=== PATIENT | male | born 1985 | race Caucasian/White ===

== ENCOUNTER 2018-04-17 15:56 | Emergency (ER) | payer MEDICAID ==
[~2018-04-17] VITALS: Ht 185.4 cm; Wt 84.0 kg
[~2018-04-17 15:56] MED LIST: AMPH30TA3 PO; HYDR-569 PO; IBUP-1984 PO; LITH150C8 PO; LORA1TAB PO; ZOL50T PO
[2018-04-17 16:58] VITALS: BP 115/69
== END 2018-04-17 18:01 | disposition home or self-care (01) ==
LOC: ER 15:59
DX: F41.9 Anxiety disorder, unspecified (principal); F32.9 Major depressive disorder, single episode, unspecified; G89.29 Other chronic pain; Z76.0 Encounter for issue of repeat prescription; Z59.0 Homelessness; Z56.0 Unemployment, unspecified
CPT/HCPCS: 99281

== ENCOUNTER 2018-05-08 10:08 | Emergency (ER) | payer MEDICAID ==
[~2018-05-08] VITALS: Ht 185.4 cm; Wt 93.7 kg
[~2018-05-08 10:08] MED LIST changes: +HYDR-4383 PO; -HYDR-569 PO; -IBUP-1984 PO; -LORA1TAB PO
[2018-05-08 10:13] VITALS: BP 128/71
== END 2018-05-08 10:43 | disposition home or self-care (01) ==
LOC: ER 10:09
DX: G89.29 Other chronic pain (principal); M54.5 Low back pain; Z79.899 Other long term (current) drug therapy; Z56.0 Unemployment, unspecified; Z59.0 Homelessness; Z60.2 Problems related to living alone
CPT/HCPCS: 99281

== ENCOUNTER 2018-09-10 15:28 | Emergency (ER) | payer MEDICAID ==
[~2018-09-10] VITALS: Ht 185.4 cm; Wt 90.0 kg
[2018-09-10 15:48] VITALS: BP 141/71
[2018-09-10] MEDS ORDERED: LORazepam 1 MG tablet PO ONE (16:50)
--- NOTE | 2018-09-10 17:08 | NUR ---
PT FOUND IN RAP WAITING ROOM WITH EYES CLOSED AND SNORING RESP. SPOKE WITH VILMA WILL HOLD ATIVAN AND DC
--- NOTE | 2018-09-10 17:13 | NUR ---
IN TO DC PT, PT APEARS TO BE ASLEEP. HAD TO SAY PTS NAME LOUDLY FOR HIM TO OPEN HIS EYES. REVIEWED DC INSTRUCTIONS WITH PT, PT STATES "ARE YOU GOING TO TREAT ME HERE" INFORMED PT WE WILL NOT BE ABLE TO GIVE ATIVAN PT WAS SLEEPING AND NEEDED TO BE WOKEN UP PRIOR TO DC. PT STATES "IM NOT SIGNING THAT UNTIL I GET ATIVAN" PT INFORMED HE NEEDS TO LEAVE AND HAS BEEN DCD BY [facility] EMT. PT AGRESSIVLY STANDS UP AND STATES "YOU ALL NEED TO GO TO FUCKING HELL." PT ESCORTED TO LOBBY BY [facility] AND PT LEFT THE ER. VILMA DIXON NOTIFIED OF PTS BEHAVIOR
== END 2018-09-10 17:29 | disposition home or self-care (01) ==
LOC: ER 15:29
DX: F41.9 Anxiety disorder, unspecified (principal); Z76.0 Encounter for issue of repeat prescription; F32.9 Major depressive disorder, single episode, unspecified; G89.29 Other chronic pain; F17.200 Nicotine dependence, unspecified, uncomplicated; F12.90 Cannabis use, unspecified, uncomplicated; Z79.899 Other long term (current) drug therapy; Z56.0 Unemployment, unspecified; Z59.0 Homelessness; Z60.2 Problems related to living alone
CPT/HCPCS: 99281

== ENCOUNTER 2019-03-28 20:41 | Emergency (ER) | payer MEDICAID ==
[~2019-03-28] VITALS: Ht 185.4 cm; Wt 86.4 kg
[~2019-03-28 20:41] MED LIST changes: +SERT-153 PO; -ZOL50T PO
[2019-03-28 20:45] VITALS: BP 134/86
== END 2019-03-28 21:49 | disposition home or self-care (01) ==
LOC: ER 20:42
DX: L98.8 Other specified disorders of the skin and subcutaneous tissue (principal); K13.79 Other lesions of oral mucosa; G89.29 Other chronic pain; F41.9 Anxiety disorder, unspecified; F32.9 Major depressive disorder, single episode, unspecified; F12.90 Cannabis use, unspecified, uncomplicated; Z71.1 Person with feared health complaint in whom no diagnosis is made; Z59.0 Homelessness; Z56.0 Unemployment, unspecified; Z79.899 Other long term (current) drug therapy
CPT/HCPCS: 99281

== ENCOUNTER 2019-04-07 13:50 | Inpatient (IN) | payer MEDICAID ==
[~2019-04-07] VITALS: Ht 185.4 cm; Wt 185.0 kg
[2019-04-07] MEDS ORDERED: hydrOXYzine 25 MG tablet PO PRN (15:20)
[2019-04-07] MEDS ORDERED: magnesium hydroxide 30ml (MOM) UD suspension PO PRN (15:20)
[2019-04-07] MEDS ORDERED: NICOTINE POLACRILEX 2 MG LOZENGE MM PRN (15:20)
[2019-04-07] MEDS ORDERED: loperamide 2mg capsule PO PRN (15:20)
[2019-04-07] MEDS ORDERED: acetaminophen 325mg tablet PO PRN ×2 (15:20)
[2019-04-07] MEDS ORDERED: LORazepam 1 MG tablet PO PRN (15:20)
[2019-04-07] MEDS ORDERED: mag hydrox/Alum hydrox/simeth 30ml oral suspension PO PRN (15:20)
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
[2019-04-07] MEDS ORDERED: LORA2TAB PO (17:15)
[2019-04-07] MEDS ORDERED: OXYC10TA47 (17:15)
[2019-04-07] MEDS ORDERED: AMPH15TA2 PO (17:15)
[2019-04-07] MEDS ORDERED: ESCI20TA38 PO (17:15)
[2019-04-07 20:40] VITALS: BP 109/53
[2019-04-07] MEDS: LORazepam 1 MG tablet PO SCH (20:48)
[2019-04-07] MEDS: oxyCODONE IR 5mg (immed. release) tablet PO SCH (20:50)
[2019-04-07] MEDS: quetiapine 100mg tablet PO SCH (20:50)
--- NOTE | 2019-04-07 23:05 | NUR ---
FATHERS PHONE NUMBER# , lives in [place].
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
[2019-04-08 07:46] VITALS: BP 103/67
[2019-04-08 08:04] LABS: CHOL/HDL RATIO 2.9 (0.00-4.99); CHOLESTEROL 116 MG/DL (0-200); HDL CHOLESTEROL 40 MG/DL (35-60); LDL CHOLESTEROL 67 MG/DL (50-100); TRIGLYCERIDES 88 MG/DL (20-135)
[2019-04-08 08:15] LABS: HEMOGLOBIN A1C 5.1 % (4.5-6.2)
[2019-04-08] MEDS: nicotine 21mg patch - 24 hr TD SCH (08:19)
[2019-04-08] MEDS: oxyCODONE IR 5mg (immed. release) tablet PO SCH ×3 (08:20→20:18)
[2019-04-08] MEDS: LORazepam 1 MG tablet PO SCH ×4 (08:20→20:17)
[2019-04-08] MEDS: citalopram 20mg tablet PO SCH (08:21)
[2019-04-08] MEDS: ADDERALL 30MG TAB PO SCH ×2 (08:49→15:13)
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
[2019-04-08 20:00] VITALS: BP 131/65
[2019-04-08] MEDS: quetiapine 100mg tablet PO SCH (20:17)
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
[2019-04-09 07:30] VITALS: BP 101/59
[2019-04-09] MEDS: citalopram 20mg tablet PO SCH (08:00)
[2019-04-09] MEDS: nicotine 21mg patch - 24 hr TD SCH (08:00)
[2019-04-09] MEDS: oxyCODONE IR 5mg (immed. release) tablet PO SCH ×3 (08:01→20:29)
[2019-04-09] MEDS: LORazepam 1 MG tablet PO SCH ×4 (08:02→20:28)
[2019-04-09] MEDS: ADDERALL 30MG TAB PO SCH ×2 (08:46→14:40)
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
[2019-04-09 20:00] VITALS: BP 124/87
[2019-04-09] MEDS: quetiapine 100mg tablet PO SCH (20:29)
[2019-04-09] MEDS: QUEtiapine 25mg tablet PO SCH (20:29)
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
[2019-04-10 07:30] VITALS: BP 95/57
[2019-04-10] MEDS: QUEtiapine 25mg tablet PO SCH ×3 (07:44→20:47)
[2019-04-10] MEDS: LORazepam 1 MG tablet PO SCH ×4 (07:44→20:47)
[2019-04-10] MEDS: citalopram 20mg tablet PO SCH (07:45)
[2019-04-10] MEDS: oxyCODONE IR 5mg (immed. release) tablet PO SCH ×2 (07:46→12:27)
[2019-04-10] MEDS: nicotine 21mg patch - 24 hr TD SCH (07:47)
[2019-04-10] MEDS ORDERED: bisacodyl 10mg suppository rectal RC PRN (16:40)
[2019-04-10] MEDS ORDERED: magnesium hydroxide 30ml (MOM) UD suspension PO PRN (16:40)
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
[2019-04-10] MEDS ORDERED: docusate sod 100mg capsule PO SCH (20:00)
[2019-04-10 20:02] VITALS: BP 130/77
[2019-04-10] MEDS: quetiapine 100mg tablet PO SCH (20:47)
[2019-04-10] MEDS: docusate sod 100mg capsule PO SCH (20:47)
[2019-04-10] MEDS: OXYcodone (OXYCONTIN) Ext Release 15 MG TAB.SR.12H PO SCH (20:48)
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
[2019-04-11] MEDS: LORazepam 1 MG tablet PO SCH ×4 (07:41→21:00)
[2019-04-11] MEDS: citalopram 20mg tablet PO SCH (07:41)
[2019-04-11] MEDS: nicotine 21mg patch - 24 hr TD SCH (07:41)
[2019-04-11] MEDS: OXYcodone (OXYCONTIN) Ext Release 15 MG TAB.SR.12H PO SCH ×2 (07:42→20:00)
[2019-04-11] MEDS: QUEtiapine 25mg tablet PO SCH ×2 (07:42→12:49)
[2019-04-11] MEDS: docusate sod 100mg capsule PO SCH ×2 (07:42→20:00)
[2019-04-11 08:00] VITALS: BP 95/62
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
[2019-04-11 19:50] VITALS: BP 114/71
[2019-04-11] MEDS: quetiapine 100mg tablet PO SCH (21:00)
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
[2019-04-12] MEDS: citalopram 20mg tablet PO SCH (07:33)
[2019-04-12] MEDS: QUEtiapine 25mg tablet PO SCH ×2 (07:33→14:58)
[2019-04-12] MEDS: LORazepam 1 MG tablet PO SCH ×2 (07:33→14:58)
[2019-04-12] MEDS: docusate sod 100mg capsule PO SCH (07:33)
[2019-04-12] MEDS: nicotine 21mg patch - 24 hr TD SCH (07:34)
[2019-04-12] MEDS: OXYcodone (OXYCONTIN) Ext Release 15 MG TAB.SR.12H PO SCH (07:34)
[2019-04-12 08:09] VITALS: BP 122/72
--- NOTE | 2019-04-12 11:01 | NUR ---
Eating well, 75-100% PO Intake regular diet. Meeting nutrition needs. Recommend: 1. continue regular diet 2. weekly wts Addendum: 04/12/19 at [address] Amended: Links added.
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
[2019-04-12] MEDS ORDERED: QUET25TA34 PO (16:47)
[2019-04-12] MEDS ORDERED: NICO-668 MM (16:47)
[2019-04-12] MEDS ORDERED: CITA-124 PO (16:47)
[2019-04-12] MEDS ORDERED: NICO-687 TD (16:47)
[2019-04-12] MEDS ORDERED: ATI1T PO ×3 (16:47)
[2019-04-12] MEDS ORDERED: LORazepam 1 MG tablet PO SCH (17:00)
--- NOTE | 2019-04-12 18:34 | NUR ---
Pt left unit accompanied by staff to hospital lobby. Mom waiting in parking lot to pickle pumper pt. Pt verbalized understanding of Discharge orders. Ativan prescription given to pt all other prescriptions called into [facility] per pt request.
== END 2019-04-12 18:34 | disposition home or self-care (01) | DRG 751 ==
LOC: ADULT MH 13:50
PROVIDERS: ADMIT Psychiatry & Neurology Psychiatry; ATTEND Psychiatry & Neurology Psychiatry
DX: F29 Unspecified psychosis not due to a substance or known physiological condition (principal); F22 Delusional disorders; F12.90 Cannabis use, unspecified, uncomplicated; F90.9 Attention-deficit hyperactivity disorder, unspecified type; G89.29 Other chronic pain; I10 Essential (primary) hypertension; K59.00 Constipation, unspecified; F17.210 Nicotine dependence, cigarettes, uncomplicated; F32.9 Major depressive disorder, single episode, unspecified; F41.9 Anxiety disorder, unspecified; M54.30 Sciatica, unspecified side; M54.2 Cervicalgia; M54.9 Dorsalgia, unspecified; Z79.899 Other long term (current) drug therapy
CPT/HCPCS: 36415; 80061; 83036; 87081; 99285

== ENCOUNTER 2019-07-20 18:30 | Emergency (ER) | payer MEDICAID ==
[~2019-07-20] VITALS: Ht 185.4 cm; Wt 97.7 kg
[~2019-07-20 18:30] MED LIST changes: -AMPH30TA3 PO; +ATI1T PO; +CITA-124 PO; -HYDR-4383 PO; -LITH150C8 PO; +NICO-668 MM; +NICO-687 TD; +OXYC10TA47; +QUET25TA34 PO; -SERT-153 PO
[2019-07-20 19:11] VITALS: BP 123/93
[2019-07-20] MEDS ORDERED: oxyCODONE/APAP 10/325mg tablet PO ONE (19:20)
--- NOTE | 2019-07-20 19:44 | NUR ---
Nurse brought pt his pain meds. Pt stated he has his own ride home.
== END 2019-07-20 19:51 | disposition home or self-care (01) ==
LOC: ER 18:31
DX: G89.4 Chronic pain syndrome (principal); K08.89 Other specified disorders of teeth and supporting structures; F12.90 Cannabis use, unspecified, uncomplicated; Z59.0 Homelessness; Z56.0 Unemployment, unspecified; Z79.899 Other long term (current) drug therapy
CPT/HCPCS: 99282

== ENCOUNTER 2019-08-30 15:15 | Emergency (ER) | payer MEDICAID ==
[~2019-08-30] VITALS: Ht 185.4 cm; Wt 97.7 kg
--- NOTE | 2019-08-30 15:45 | NUR ---
Assumed care of the patient at this time.
--- NOTE | 2019-08-30 16:30 | NUR ---
Pt is calm and cooperative, denies pain. Pt is aware we need a urine specimen.
[2019-08-30 16:35] LABS: BASOPHILS % (AUTO) 0.9 % (0-1); EOSINOPHILS # (AUTO) 0.2 X10'3 (0-0.9); EOSINOPHILS % (AUTO) 4.4 % (0-6); HEMATOCRIT 42.8 % (42.0-52.0); HEMOGLOBIN 14.9 g/dl (14.0-17.9); LYMPHOCYTES # (AUTO) 1.5 X10'3 (1.1-4.8); LYMPHOCYTES % (AUTO) 33.1 % (21-51); MEAN CORPUSCULAR HEMOGLOBIN 30.5 PG (27.0-31.0); MEAN CORPUSCULAR HGB CONC 34.8 g/dL (33.0-36.5); MEAN CORPUSCULAR VOLUME 87.5 FL (78-98); MEAN PLATELET VOLUME 9.2 FL (7.4-10.4); MONOCYTES # (AUTO) 0.4 X10'3 (0-0.9); MONOCYTES % (AUTO) 8.5 % (2-12); NEUTROPHILS # (AUTO) 2.5 X10'3 (1.8-7.7); NEUTROPHILS % (AUTO) 53.1 % (42-75); PLATELET COUNT 219 X10'3 (140-440); RED BLOOD COUNT 4.89 X10'6 (4.70-6.10); WHITE BLOOD COUNT 4.6 X10'3 (4.5-11.0)
[2019-08-30 16:47] LABS: ALANINE AMINOTRANSFERASE 30 U/L (12-78); ALBUMIN 3.8 G/DL (3.4-5.0); ALBUMIN/GLOBULIN RATIO 1.5 (1.1-1.5); ALKALINE PHOSPHATASE 118 IU/L (46-116); ANION GAP 5 (8-16); ASPARTATE AMINO TRANSFERASE 12 U/L (10-37); BILIRUBIN,TOTAL 0.3 MG/DL (0.1-1.0); BLOOD UREA NITROGEN 14 MG/DL (7-18); BUN/CREATININE RATIO 14.7 (5.4-32.0); CALCIUM 8.6 MG/DL (8.5-10.1); CHLORIDE 110 MMOL/L (99-107); CREATININE 0.95 MG/DL (0.60-1.10); GLUCOSE 99 MG/DL (70-104); POTASSIUM 3.7 MMOL/L (3.5-5.1); SODIUM 144 MMOL/L (135-145); TOTAL CARBON DIOXIDE 29.2 MMOL/L (24-32); TOTAL PROTEIN 6.3 G/DL (6.4-8.2); eGFR > 90 ML/MIN
[2019-08-30 16:51] LABS: ETHANOL < 0.010 GM/DL (0.0-0.010)
--- NOTE | 2019-08-30 17:30 | NUR ---
No change in condition. Pt is calm and cooperative.
[2019-08-30] MEDS ORDERED: DEXT10CA19 PO (18:12)
[2019-08-30] MEDS ORDERED: ESCI20TA45 PO (18:12)
[2019-08-30] MEDS ORDERED: [UNRECOGNIZED DRUG - CODE] PO (18:16)
[2019-08-30] MEDS ORDERED: NICO-687 TOP (18:16)
--- NOTE | 2019-08-30 18:37 | NUR ---
Pt resting with even and unlabored respirations.
--- NOTE | 2019-08-30 19:35 | NUR ---
Pt resting, no complaints. Pt ate his dinner tray. Sitter at bedside.
[2019-08-30] MEDS ORDERED: BUPR2TAB11 SL (19:55)
--- NOTE | 2019-08-30 20:25 | NUR ---
No change in condition. Continuing to monitor.
--- NOTE | 2019-08-30 20:45 | NUR ---
Pt ambulatory with steady gait to the restroom to provide a urine specimen. Pt remains calm and cooperative with no complaints at this time.
[2019-08-30 21:10] LABS: CLARITY,URINE SLIGHTLY CLOUDY (Clear); COLOR,URINE YELLOW (Yellow); GLUCOSE, URINE NEGATIVE (Neg); KETONES,URINE NEGATIVE (Neg); LEUKOCYTE ESTERASE ,URINE NEGATIVE (Neg); NITRITES, URINE NEGATIVE (Neg); OCCULT BLOOD,URINE NEGATIVE (Neg); PH,URINE 6.5 (4.8-8.0); PROTEIN,URINE NEGATIVE (Neg); UROBILINOGEN,URINE 0.2 E.U/dL (0.2-1.0)
[2019-08-30 21:16] LABS: UA COLLECTION TYPE CLN CATCH MIDSTREAM
[2019-08-30 21:19] LABS: BACTERIA,URINE NONE SEEN /HPF (Neg); MUCUS STRANDS MANY /LPF (Neg); RBC,URINE NONE SEEN /HPF (0-2); SQUAMOUS EPITHELIAL CELL,UR FEW /LPF (FEW); WBC,URINE 0-4 /HPF (0-4)
[2019-08-30 21:20] LABS: CAL OXALATE CRYSTALS FEW /HPF (NEGATIVE); SPERM FEW /HPF (NEGATIVE)
--- NOTE | 2019-08-30 21:20 | NUR ---
Pt moved from ED bed 15 to ED bed 27 in the overflow area for further monitoring while awaiting mental health evaluation from [facility] staff.
[2019-08-30 21:24] LABS: URINE AMPHETAMINE SCREEN NEGATIVE (Neg); URINE BARBITUATE SCREEN NEGATIVE (Neg); URINE BENZODIAZEPINES SCREEN NEGATIVE (Neg); URINE CANNABINOID SCREEN POSITIVE (Neg); URINE COCAINE SCREEN NEGATIVE (Neg); URINE METHADONE SCREEN NEGATIVE (Neg); URINE OPIATE SCREEN NEGATIVE (Neg); URINE PHENCYCLIDINE SCREEN NEGATIVE (Neg)
--- NOTE | 2019-08-30 21:27 | NUR ---
Pt arrived in overflow from main ER, calm cooperative ambulated to his bed and is now asleep on his stomach rr even and unlabored.
[2019-08-30] MEDS ORDERED: NICOTINE POLACRILEX 2 MG LOZENGE BC PRN (22:20)
--- NOTE | 2019-08-30 22:29 | NUR ---
pt laying in bed asleep rr even and unlabored no s/s distress
--- NOTE | 2019-08-31 01:00 | NUR ---
pt laying in bed on his right side rr 14 even and unlabored no s/s distress
--- NOTE | 2019-08-31 02:41 | NUR ---
pt is sleeping rr even and unlabored
--- NOTE | 2019-08-31 05:00 | NUR ---
pt laying on his left side sleeping rr even and unlabored no s/s distress
[2019-08-31] MEDS: BUPRENORPHINE HCL 8 MG SL SCH ×2 (08:00→20:00)
--- NOTE | 2019-08-31 09:30 | NUR ---
PTS FATHER HAD COME TO VISIT, PT REFUSES TO HAVE FATHER COME SEE HIM. PARENT LEFT PHONE HIS AND WIFES NUMBER FOR CONTACT PETER REDMOND: SHAWNA REDMOND:
[2019-08-31] MEDS: ESCITALOPRAM OXALATE 5 MG TABLET PO SCH (10:15)
[2019-08-31] MEDS: nicotine 21mg patch - 24 hr TD SCH (10:15)
--- NOTE | 2019-08-31 11:03 | NUR ---
[facility] speaking to patient and advising patient of 5150 hold.
--- NOTE | 2019-08-31 11:05 | NUR ---
CEZAR FROM [facility] AT BEDSIDE TO SPEAK WITH PATIENT AT THIS TIME.
[2019-08-31] MEDS ORDERED: haloperidol lactate 5mg/ml inj IM ONE (11:15)
[2019-08-31] MEDS ORDERED: diphenhydrAMINE 50 mg/ml inj IM ONE (11:15)
[2019-08-31] MEDS ORDERED: LORazepam 2 mg/ml vial IM ONE (11:15)
--- NOTE | 2019-08-31 11:28 | NUR ---
PATIENT IS CURRENTLY IN THE BATHROOM. I KNOCKED ON THE DOOR AND CHECKED IN ON THE PATIENT TO MAKE SURE HE WAS SAFELY USING THE RESTROOM.
--- NOTE | 2019-08-31 12:22 | NUR ---
PT LAYING ON RIGHT SIDE RESTING WITH EYES CLOSED, EFFORTLESS RESPRIATIONS OBSERVED.
--- NOTE | 2019-08-31 19:00 | NUR ---
PT IN BED RESTLESS/ MOVING AROUND ALOT/ STATED ' FEELING ANITIOUS AND OUT OF CONTROL IN MY MIND " ASKING IF HE CAN NOW TAKE HIS MEDICATION THAT HE WILL BE COROPERATE , BUT I DONT GET SOMETHING I CAN GET OUT OF CONTROL" DAYSHIFT CARLOS ROSADO REPORTED PT HAD BEEN REFUSING ALL DAY . PT VERBALIZED HE WILL SIT STILL AND NOW TAKE HIS MEDICINE
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
--- NOTE | 2019-08-31 23:05 | NUR ---
PT SLEEPING PEACFULLY RESP UNLABORED SELF POSITIONS WILL CONTINUE TO ASSESS AND MONITOR
--- NOTE | 2019-09-01 00:29 | NUR ---
NO CHANGES TO PREVIOUS ASSESSMENT RESP UNLABORED PT SLEEPING PEACFULLY IN THE LINE OF SIGHT OF STAFF
--- NOTE | 2019-09-01 01:00 | NUR ---
PT SLEEPING ON HIS BACK RESP UNLABORED NO CHANGES TO PREVIOUS ASSESSMENT WILL CONTINUE TO ASSESS AND MONITOR
--- NOTE | 2019-09-01 02:00 | NUR ---
PT SLEEPING PEACFULLY ON HIS STOMACH NO CHANGE TO PREVIOUS ASSEEMENT RESP UNLABORED WILL CONTINUE TO MONITOR AND REASSESS
--- NOTE | 2019-09-01 03:24 | NUR ---
PT SLEEPING PEACFULLY ON HIS RIGHT SIDE NO CHANGE TO PREVIOUS ASSEEMENT RESP UNLABORED WILL CONTINUE TO MONITOR AND REASSESS
--- NOTE | 2019-09-01 04:43 | NUR ---
PT SLEEPING PEACFULLY ON HIS RIGHT SIDE NO CHANGE TO PREVIOUS ASSESSMENT RESP UNLABORED WILL CONTINUE TO MONITOR AND REASSESS
--- NOTE | 2019-09-01 05:38 | NUR ---
PT ASLEEP ON HIS RIGHT SIDE RESP UNLABORED WILL CONTINUE TO MONITOR AND REASSESS
[2019-09-01 06:15] VITALS: BP 124/9
[2019-09-01] MEDS: BUPRENORPHINE HCL 8 MG SL SCH (08:00)
[2019-09-01] MEDS: nicotine 21mg patch - 24 hr TD SCH (08:17)
[2019-09-01] MEDS: ESCITALOPRAM OXALATE 5 MG TABLET PO SCH (08:17)
--- NOTE | 2019-09-01 09:10 | NUR ---
Patient has finished breakfast and has taken his available AM medications. He is calmly laying in bed, attempting to sleep further. So far he has not shown agitation at being here.
--- NOTE | 2019-09-01 13:32 | NUR ---
Kelly Vora called for a RN to RN report. She said that unless the county can confirm a 17 day dose for Methadone, they cannot accept the patient. The father of the patient will be called and asked about providing the proper amount of the medication from the Patient's medications.
[2019-09-01] MEDS ORDERED: FENT-16 (16:56)
[2019-09-02] MEDS ORDERED: DEXT30TA10 PO (12:01)
== END 2019-09-01 15:40 | disposition home or self-care (01) ==
LOC: ER 15:15
DX: R45.6 Violent behavior (principal); F20.9 Schizophrenia, unspecified; G89.29 Other chronic pain; F41.9 Anxiety disorder, unspecified; F32.9 Major depressive disorder, single episode, unspecified; F12.90 Cannabis use, unspecified, uncomplicated; Z60.2 Problems related to living alone; Z59.0 Homelessness; Z56.0 Unemployment, unspecified; Z79.899 Other long term (current) drug therapy
CPT/HCPCS: 36415; 80053; 80305; 80320; 81001; 84443; 85025; 96372; 99285; J1200; J1630; J2060

== ENCOUNTER 2019-09-01 14:31 | Inpatient (IN) | payer MEDICAID ==
[~2019-09-01] VITALS: Ht 185.4 cm; Wt 97.7 kg
[~2019-09-01 14:31] MED LIST changes: -ATI1T PO; +BUPR2TAB11 SL; -CITA-124 PO; +DEXT10CA19 PO; +ESCI20TA45 PO; -NICO-668 MM; -NICO-687 TD; +NICO-687 TOP; -OXYC10TA47; -QUET25TA34 PO; +[UNRECOGNIZED DRUG - CODE] PO
[2019-09-01] MEDS ORDERED: mag hydrox/Alum hydrox/simeth 30ml oral suspension PO PRN (15:25)
[2019-09-01] MEDS ORDERED: NICOTINE POLACRILEX 2 MG LOZENGE BC PRN (15:25)
[2019-09-01] MEDS ORDERED: LORazepam 1 MG tablet PO PRN (15:25)
[2019-09-01] MEDS ORDERED: acetaminophen 325mg tablet PO PRN ×2 (15:25)
[2019-09-01] MEDS ORDERED: hydrOXYzine 25 MG tablet PO PRN (15:25)
[2019-09-01] MEDS ORDERED: loperamide 2mg capsule PO PRN (15:25)
[2019-09-01] MEDS ORDERED: magnesium hydroxide 30ml (MOM) UD suspension PO PRN (15:25)
[2019-09-01] MEDS ORDERED: FENT-16 (16:56)
[2019-09-01 20:05] VITALS: BP 122/80
[2019-09-01] MEDS: zolpidem 5mg tablet PO PRN (23:31)
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
[2019-09-02 07:41] LABS: CHOL/HDL RATIO 3.9 (0.00-4.99); CHOLESTEROL 121 MG/DL (0-200); HDL CHOLESTEROL 31 MG/DL (35-60); LDL CHOLESTEROL 80 MG/DL (50-100); TRIGLYCERIDES 155 MG/DL (20-135)
[2019-09-02] MEDS ORDERED: ESCITALOPRAM OXALATE 5 MG TABLET PO SCH (08:00)
[2019-09-02] MEDS ORDERED: nicotine 21mg patch - 24 hr TD SCH (08:00)
[2019-09-02 08:02] VITALS: BP 106/71
[2019-09-02] MEDS: nicotine 21mg patch - 24 hr TD SCH (08:04)
[2019-09-02] MEDS ORDERED: DEXT30TA10 PO (12:01)
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
[2019-09-02 19:48] VITALS: BP 135/95
[2019-09-02] MEDS ORDERED: haloperidol lactate 5mg/ml inj ONE (20:08)
[2019-09-02] MEDS ORDERED: LORazepam 2 mg/ml vial ONE (20:08)
[2019-09-02] MEDS ORDERED: diphenhydrAMINE 50 mg/ml inj ONE (20:09)
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
[2019-09-03 08:00] VITALS: BP 107/68
[2019-09-03] MEDS: nicotine 21mg patch - 24 hr TD SCH (08:25)
[2019-09-03] MEDS: ARIPIPRAZOLE 10 MG TABLET PO SCH (08:26)
[2019-09-03] MEDS: hydrOXYzine 25 MG tablet PO PRN (15:14)
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
[2019-09-03] MEDS: zolpidem 5mg tablet PO PRN (19:14)
[2019-09-03 20:03] VITALS: BP 116/66
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
[2019-09-04 07:00] VITALS: BP 107/67
[2019-09-04] MEDS: ARIPIPRAZOLE 10 MG TABLET PO SCH (08:08)
[2019-09-04] MEDS: hydrOXYzine 25 MG tablet PO PRN ×3 (11:45→20:13)
[2019-09-04] MEDS: nicotine 21mg patch - 24 hr TD SCH (11:46)
[2019-09-04] MEDS ORDERED: LORazepam 1 MG tablet PO ONE (16:40)
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
[2019-09-04 20:00] VITALS: BP 136/95
[2019-09-04] MEDS: zolpidem 5mg tablet PO PRN ×2 (20:14→21:46)
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
[2019-09-05 08:00] VITALS: BP 108/76
[2019-09-05] MEDS: ARIPIPRAZOLE 10 MG TABLET PO SCH (08:09)
[2019-09-05] MEDS: nicotine 21mg patch - 24 hr TD SCH (08:11)
[2019-09-05] MEDS: hydrOXYzine 25 MG tablet PO PRN ×3 (11:32→20:23)
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
[2019-09-05] MEDS ORDERED: LORazepam 1 MG tablet PO ONE (14:45)
--- NOTE | 2019-09-05 14:53 | NUR ---
Administered Ativan 2 mg PO at 1450 for increased anxiety. Pt appreciative, "thank you ma'am, bless you." Pt went on to reiterate how lost he is without his Adderall, that it helps him stay focused and calm.
[2019-09-05] MEDS: zolpidem 5mg tablet PO PRN ×2 (19:35→20:23)
[2019-09-05 20:00] VITALS: BP 127/84
[2019-09-05] MEDS ORDERED: OLANZapine 5mg rapidly disint. tablet PO ONE (21:00)
[2019-09-06] MEDS ORDERED: OLANZapine 5mg rapidly disint. tablet PO SCH (00:30)
[2019-09-06] MEDS ORDERED: OLANZapine 5mg rapidly disint. tablet PO ONE (00:30)
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
[2019-09-06 08:11] VITALS: BP 125/88
[2019-09-06] MEDS: nicotine 21mg patch - 24 hr TD SCH (08:30)
[2019-09-06] MEDS: PALIPERIDONE 3 MG TAB.ER.24 PO SCH (08:32)
[2019-09-06] MEDS: ARIPIPRAZOLE 10 MG TABLET PO SCH (08:32)
[2019-09-06] MEDS: duloxetine 30mg CAPSULE.DR PO SCH (08:32)
[2019-09-06] MEDS: traMADol 50MG tablet PO PRN ×2 (12:28→20:17)
--- NOTE | 2019-09-06 12:39 | NUR ---
PO intake 75-100%, eating well and meeting needs. no nutrition problem at this time. Will follow. Recommend: 1. continue regular diet 2. bowel care as needed 3. weekly weights Addendum: 09/06/19 at [address] Amended: Links added.
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
[2019-09-06 20:00] VITALS: BP 116/70
[2019-09-06] MEDS: hydrOXYzine 25 MG tablet PO PRN (20:16)
[2019-09-06] MEDS: zolpidem 5mg tablet PO PRN (20:16)
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
[2019-09-07 07:30] VITALS: BP 104/71
[2019-09-07] MEDS: atomoxetine 40 MG capsule PO SCH (08:23)
[2019-09-07] MEDS: ARIPIPRAZOLE 10 MG TABLET PO SCH (08:23)
[2019-09-07] MEDS: duloxetine 30mg CAPSULE.DR PO SCH (08:23)
[2019-09-07] MEDS: PALIPERIDONE 3 MG TAB.ER.24 PO SCH (08:23)
[2019-09-07] MEDS: nicotine 21mg patch - 24 hr TD SCH (08:24)
[2019-09-07] MEDS: traMADol 50MG tablet PO PRN ×3 (08:33→20:10)
--- NOTE | 2019-09-07 14:59 | NUR ---
Spoke to Leigha [facility], regarding [facility] referral. She reported she will inquire about referring him to [facility] with [facility] Clinical Electromechanical Inspector. HUGO Gomez
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
[2019-09-07 20:00] VITALS: BP 128/86
[2019-09-07] MEDS: hydrOXYzine 25 MG tablet PO PRN (20:10)
[2019-09-07] MEDS: zolpidem 5mg tablet PO PRN (20:12)
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
[2019-09-08 08:06] VITALS: BP 121/88
[2019-09-08] MEDS: PALIPERIDONE 3 MG TAB.ER.24 PO SCH (08:17)
[2019-09-08] MEDS: duloxetine 30mg CAPSULE.DR PO SCH (08:18)
[2019-09-08] MEDS: traMADol 50MG tablet PO PRN ×3 (08:18→20:32)
[2019-09-08] MEDS: atomoxetine 40 MG capsule PO SCH (08:18)
[2019-09-08] MEDS: nicotine 21mg patch - 24 hr TD SCH (08:19)
--- NOTE | 2019-09-08 16:05 | NUR ---
CM Presenting Issues: Pt's father called informed SS that family will leave for [facility] on 09/25 and will not return to [place]. Father expressed concerns and frustration w/pt's bxs (insisting on stimulant medications) and denial of his mental health conditions. Interventions: SS provided reflective listening, validating and normalizing father's frustrations and concerns. SS also provided psycho-social education re [facility]. Per t/c, pt's father reports that family will go to [facility] on 09/25 for 1 month but will not return to [place]. Plan: SS to meet w/pt tomorrow to assess pt's willingness to participate in treatment regiment and d/c needs. Rosalia Meneses LCSW Addendum: 09/08/19 at 1617 by Rosalia Meneses Amended: Links added.
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
[2019-09-08 20:00] VITALS: BP 114/74
[2019-09-08] MEDS: hydrOXYzine 25 MG tablet PO PRN (20:27)
[2019-09-08] MEDS: zolpidem 5mg tablet PO PRN (20:27)
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
[2019-09-09 07:35] VITALS: BP 104/71
[2019-09-09] MEDS: traMADol 50MG tablet PO PRN ×3 (08:22→20:12)
[2019-09-09] MEDS: atomoxetine 40 MG capsule PO SCH (08:23)
[2019-09-09] MEDS: PALIPERIDONE 3 MG TAB.ER.24 PO SCH (08:23)
[2019-09-09] MEDS: duloxetine 30mg CAPSULE.DR PO SCH (08:23)
[2019-09-09] MEDS: nicotine 21mg patch - 24 hr TD SCH (12:07)
[2019-09-09] MEDS: hydrOXYzine 25 MG tablet PO PRN ×2 (12:43→20:11)
[2019-09-09] MEDS ORDERED: paliperidone palmitate inj 234 MG/1.5 ML SYRINGE IM ONE (16:25)
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
[2019-09-09 19:41] VITALS: BP 132/94
[2019-09-09] MEDS: zolpidem 5mg tablet PO PRN (20:12)
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
[2019-09-10 07:47] VITALS: BP 102/66
[2019-09-10] MEDS: nicotine 21mg patch - 24 hr TD SCH (08:19)
[2019-09-10] MEDS: hydrOXYzine 25 MG tablet PO PRN ×2 (08:19→17:15)
[2019-09-10] MEDS: duloxetine 30mg CAPSULE.DR PO SCH (08:20)
[2019-09-10] MEDS: traMADol 50MG tablet PO PRN ×4 (08:20→20:06)
[2019-09-10] MEDS: atomoxetine 40 MG capsule PO SCH (08:20)
[2019-09-10] MEDS: PALIPERIDONE 3 MG TAB.ER.24 PO SCH (08:21)
--- NOTE | 2019-09-10 13:12 | NUR ---
CM Presenting Issues: Per MDT consultation pt started receiving Invega Sustenna injections yesterday, MDT is requesting SS begin dcp work with pt & family. Interventions: SS had t/c w/pt's father to assess family's concerns associated w/d/c. Per t/c family requested for a family meeting w/pt & prescriber prior to d/c. Plan: SS will meet w/pt & engage him in dcp activities and assess pt's willingness to re-engage w/family. PANDA ManriquezW Addendum: 09/10/19 at 1327 by Rosalia Meneses Amended: Links added.
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
[2019-09-10 19:48] VITALS: BP 121/78
[2019-09-10] MEDS: zolpidem 5mg tablet PO PRN (20:06)
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
[2019-09-11 07:30] VITALS: BP 113/73
[2019-09-11] MEDS: duloxetine 30mg CAPSULE.DR PO SCH (08:12)
[2019-09-11] MEDS: atomoxetine 40 MG capsule PO SCH (08:13)
[2019-09-11] MEDS: nicotine 21mg patch - 24 hr TD SCH (08:15)
[2019-09-11] MEDS: traMADol 50MG tablet PO PRN ×3 (08:30→20:08)
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
[2019-09-11 20:09] VITALS: BP 120/75
[2019-09-11] MEDS: zolpidem 5mg tablet PO PRN (20:09)
[2019-09-11] MEDS: docusate sod 100mg capsule PO SCH (20:10)
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
[2019-09-12 07:37] VITALS: BP 113/69
[2019-09-12] MEDS: traMADol 50MG tablet PO PRN ×3 (07:53→20:54)
[2019-09-12] MEDS: docusate sod 100mg capsule PO SCH ×2 (07:54→20:53)
[2019-09-12] MEDS: atomoxetine 40 MG capsule PO SCH (07:54)
[2019-09-12] MEDS: duloxetine 30mg CAPSULE.DR PO SCH (07:56)
[2019-09-12] MEDS: nicotine 21mg patch - 24 hr TD SCH (07:58)
[2019-09-12] MEDS: hydrOXYzine 25 MG tablet PO PRN (14:09)
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
[2019-09-12 19:33] VITALS: BP 115/85
[2019-09-12] MEDS: zolpidem 5mg tablet PO PRN (20:54)
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
[2019-09-13 07:37] VITALS: BP 114/73
[2019-09-13] MEDS: docusate sod 100mg capsule PO SCH ×2 (07:56→20:13)
[2019-09-13] MEDS: duloxetine 30mg CAPSULE.DR PO SCH (07:58)
[2019-09-13] MEDS: traMADol 50MG tablet PO PRN ×3 (08:29→20:12)
[2019-09-13] MEDS: nicotine 21mg patch - 24 hr TD SCH (08:34)
--- NOTE | 2019-09-13 13:43 | NUR ---
Reassessment: PO intake 75-100%, eating well and meeting needs regular diet. no nutrition problem at this time. Will follow. Recommend: 1. continue regular diet 2. bowel care as needed 3. weekly weights Addendum: 09/13/19 at [address] Amended: Links added.
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
[2019-09-13] MEDS: zolpidem 5mg tablet PO PRN (20:12)
[2019-09-13 20:34] VITALS: BP 116/79
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
[2019-09-14 07:59] VITALS: BP 113/69
[2019-09-14] MEDS: traMADol 50MG tablet PO PRN ×2 (08:08→14:18)
[2019-09-14] MEDS: nicotine 21mg patch - 24 hr TD SCH (08:09)
[2019-09-14] MEDS: duloxetine 30mg CAPSULE.DR PO SCH (08:09)
[2019-09-14] MEDS: docusate sod 100mg capsule PO SCH (08:09)
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
[2019-09-14] MEDS ORDERED: paliperidone palmitate inj 234 MG/1.5 ML SYRINGE IM ONE (13:50)
[2019-09-14] MEDS ORDERED: DULO30CA52 PO (13:55)
[2019-09-14] MEDS ORDERED: ZOLP5TAB8 PO (13:55)
[2019-09-14] MEDS ORDERED: NICO-668 BC (13:55)
[2019-09-14] MEDS ORDERED: NICO-687 TD (13:55)
[2019-09-14] MEDS ORDERED: TRAM50TA2 PO (13:55)
[2019-09-14] MEDS ORDERED: ATOM80CA PO (13:55)
[2019-09-14] MEDS ORDERED: paliperidone palmitate 156 mg/ml inj.**IM only IM ONE (14:00)
--- NOTE | 2019-09-14 15:46 | NUR ---
DISCHARGE NOTE: Patient is discharged in stable condition. Patient was given all his belongings back to him upon discharge. Discharge packet reviewed and medications were given to patient. Patient will follow-up with [facility] on at 08:30. Patient denies SI/HI. Transported to [facility] via [facility].
== END 2019-09-14 15:46 | disposition home or self-care (01) | DRG 750 ==
LOC: ADULT MH 14:31
PROVIDERS: ADMIT Psychiatry & Neurology Psychiatry; ATTEND Psychiatry & Neurology Psychiatry
DX: F20.0 Paranoid schizophrenia (principal); F11.10 Opioid abuse, uncomplicated; F84.0 Autistic disorder; F12.90 Cannabis use, unspecified, uncomplicated; F17.210 Nicotine dependence, cigarettes, uncomplicated; F90.9 Attention-deficit hyperactivity disorder, unspecified type; G89.29 Other chronic pain; Z79.899 Other long term (current) drug therapy
CPT/HCPCS: 36415; 80061; 83036; 87081; 99285; J1200; J1630; J2060; Z7610